=== PATIENT | female | born 1985 | race Caucasian/White ===

== ENCOUNTER 2020-11-24 09:37 | Day surgery (SDC) | payer BC ==
[2020-11-20 11:19] VITALS: BMI 32.8
[~2020-11-24 09:37] MED LIST: LACTATED RINGERS 1,000 ML IV SCH; LIDOCAINE 1% (10MG/ML) FOR IV START INTRADERMA PRN
[2020-11-24 10:22] VITALS: TEMP 98.3
[2020-11-24] MEDS ORDERED: MIDAZOLAM 2 MG/2 ML VIAL ONE (10:42)
[2020-11-24] MEDS ORDERED: LIDOCAINE 1% INJ 10MG/ML (20 ML MDV) ONE (10:42)
[2020-11-24] MEDS ORDERED: fentaNYL (PF) 50 MCG/ML 2 ML AMP ONE (10:42)
[2020-11-24] MEDS ORDERED: PROPOFOL 10 MG/ML 20 ML VIAL IV ONE (10:42)
--- NOTE | 2020-11-24 11:00 | P.PCN ---
Date of Procedure: 11/24/20 Description of Procedure: BRIEF HISTORY: Patient is a 35-year-old female presents for esophagogastroduodenoscopy for evaluation of eructation/burping and nausea. She was seen in the clinic reporting symptoms of frequent belching which were annoying and uncomfortable. She reports episodes of nausea. Previously she had blood testing and ultrasound the abdomen which were negative. PROCEDURE PERFORMED: Esophagogastroduodenoscopy with biopsy. PREOPERATIVE DIAGNOSIS: Eructation/burping, nausea. ESTIMATED BLOOD LOSS: Minimal. IV sedation per anesthesia. PROCEDURE: After informed consent was obtained, the patient was brought into the endoscopy unit. IV sedation was administered by Anesthesia under continuous monitoring. Initially the Olympus GIF-190 video endoscope was inserted into the mouth. Esophagus intubated without any difficulty. It was gradually advanced into the stomach and duodenum and carefully examined. The bulb and the second part of the duodenum appeared normal, with biopsies taken to rule out celiac sprue. The scope at this time was withdrawn to the stomach, adequately insufflated with air, and upon careful examination, mucosa of the antrum, body, cardia and the fundus appeared normal, with biopsies of the antrum and body taken to rule out Helicobacter pylori infection. The scope was then withdrawn into the esophagus. The GE junction was located at 37 cm from the incisors. The esophagus appeared normal, with lower esophageal biopsies taken. There were no erosions or ulcerations seen and the patient tolerated the procedure well. IMPRESSION: 1. Normal upper endoscopy with no gross abnormality seen. 2. Biopsies of the duodenum, antrum and body and lower esophagus. RECOMMENDATIONS: The findings of this examination were discussed with the patient and her family. Okay to resume diet. Okay to resume medications. We pathology from biopsies. Follow up in the GI clinic as scheduled.
[2020-11-24 11:20] VITALS: BP 114/78; PULSE 68; RESP 18
== END 2020-11-24 11:35 | disposition home or self-care (01) ==
LOC: ORWHC2ENDO 09:37
PROVIDERS: ATTEND Internal Medicine
DX: K29.50 Unspecified chronic gastritis without bleeding (principal); K20.90 Esophagitis, unspecified without bleeding; T75.3XXA Motion sickness, initial encounter; K21.9 Gastro-esophageal reflux disease without esophagitis; Z87.891 Personal history of nicotine dependence
CPT/HCPCS: 43239; 81025; 88305; J2250; J2001; J3010; J2704